=== PATIENT | female | born 1995 | race Caucasian/White ===

== ENCOUNTER 2019-12-05 18:57 | Emergency (ER) | payer BC, OTHER ==
--- NOTE | 2019-12-05 19:12 | ED Physician Documentation ---
History of Present Illness - Stated complaint Stated Complaint: LIGHTHEADED, SOA, NAUSEA - Chief complaint Chief Complaint: Resp - History obtained from History obtained from: Patient (Patient is a 22-year-old female presents with a chief complaint of shortness of breath. She denies any history of pulmonary embolism or DVT there is no family history of hypercoagulability she denies any hemoptysis or fevers or cough. Denies any lower extremity swelling.Denies chest pain, denies), Other (Denies palpitations or syncope. Denies any family history of sudden in young age and mother, father, brother sister.) Review of Systems Constitutional: reports: Reviewed and negative Eyes: reports: Reviewed and negative Ears: reports: Reviewed and negative Nose: reports: Reviewed and negative Throat: reports: Reviewed and negative Cardiac: reports: Reviewed and negative Respiratory: reports: Dyspnea GI: reports: Reviewed and negative : reports: Reviewed and negative Skin: reports: Reviewed and negative Musculoskeletal: reports: Reviewed and negative Neurologic: reports: Reviewed and negative Psychiatric: reports: Reviewed and negative Endocrine: reports: Reviewed and negative Immunocompromised: reports: Reviewed and negative PD PAST MEDICAL HISTORY - Allergies Allergies/Adverse Reactions: Allergies Allergy/AdvReac Type Severity Reaction Status Date / Time azithromycin [From Zithromax] Allergy Respiratory Verified 12/05/19 19:03 PD ED PE NORMAL - Vitals Vital signs reviewed: Yes - General General: Alert and oriented X 3, No acute distress - HEENT HEENT: Atraumatic, PERRL, Moist mucous membranes, Pharynx benign - Neck Neck: Supple, no meningeal sign - Cardiac Cardiac: RRR, No murmur, No gallop, No rub, Strong equal pulses - Respiratory Respiratory: No respiratory distress, Clear bilaterally - Abdomen Abdomen: Normal bowel sounds, Soft, Non tender, Non distended, No organomegaly - Back Back: No CVA TTP, No spinal TTP - Derm Derm: Normal color, Warm and dry, No rash - Extremities Extremities: No deformity, No tenderness to palpate, Normal ROM s pain, No edema, No calf tenderness / cord - Neuro Neuro: Alert and oriented X 3, 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, No motor deficit, No sensory deficit, Normal speech - Psych Psych: Normal mood, Normal affect Results - Vitals Vitals: Vital Signs - 24 hr 12/05/19 18:59 Temperature 37.1 C Heart Rate 110 H Respiratory 16 Rate Blood Pressure 134/79 H O2 Saturation 99 Oxygen O2 Source Room air - Labs Labs: Laboratory Tests 12/05/19 19:53 Urine Color YELLOW Urine Clarity CLEAR Urine pH 7.0 Ur Specific Odum 1.010 Urine Protein NEGATIVE Urine Glucose (UA) NEGATIVE Urine Ketones NEGATIVE Urine Occult Blood NEGATIVE Urine Nitrite NEGATIVE Urine Bilirubin NEGATIVE Urine Urobilinogen 0.2 (NORMAL) Ur Leukocyte Esterase MODERATE H Urine RBC None Seen Urine WBC 4-5 Ur Squamous Epith Cells MOD Squamous H Urine Bacteria None Seen Ur Microscopic Review INDICATED Urine Culture Comments NOT INDICATED Urine HCG, Qual NEGATIVE PD MEDICAL DECISION MAKING - ED course Complexity details: reviewed results, re-evaluated patient, considered differential (23-year-old female with no risk factors presents with shortness of breath, no fever, normal chest x-ray. Well-appearing on physical exam. Her heart rate is 90 and regular on reexamination. PERC O. ), d/w patient, other (Patient reexamined her heart rate is 90 and breath sounds are clear she is nontoxic and nonseptic appearing) Departure - Departure Disposition: 01 Home, Self Care Clinical Impression: SOB (shortness of breath) Condition: Stable Instructions: ED Dyspnea Shortness of Breath Follow-Up: Naveed Carreon MD [Provider Admit Priv/Credential] - Tomorrow Comments: Follow-up with a primary care provider tomorrow.
--- NOTE | 2019-12-05 19:57 | XRAY Report ---
PROCEDURE: Chest 1 View X-Ray INDICATIONS: sob TECHNIQUE: One view of the chest was acquired. COMPARISON: None. FINDINGS: Surgical changes and devices: None. Lungs and pleura: No pleural effusions or pneumothorax. Lungs are clear. Mediastinum: Mediastinal contours appear normal. Heart size is normal. Bones and chest wall: No suspicious bony lesions. Overlying soft tissues appear unremarkable. IMPRESSION: No acute cardiopulmonary pathology. Reviewed by: Brian Bronson MD on 12/05/2019 7:55 PM PDT Approved by: Brian Bronson MD on 12/05/2019 7:55 PM PDT Station ID: [id number]
[2019-12-05 20:21] LABS: BILIRUBIN,URINE NEGATIVE (NEGATIVE); CLARITY,URINE CLEAR (CLEAR); GLUCOSE, URINE (UA) NEGATIVE (NEGATIVE); KETONES,URINE (UA) NEGATIVE (NEGATIVE); LEUKOCYTE ESTERASE, URINE MODERATE (NEGATIVE); NITRITE,URINE NEGATIVE (NEGATIVE); OCCULT BLOOD,URINE NEGATIVE (NEGATIVE); PROTEIN,URINE NEGATIVE (NEGATIVE); UROBILINOGEN,URINE 0.2 (NORMAL) E.U./dL (NORMAL)
[2019-12-05 20:22] LABS: HCG UR QUAL NEGATIVE
[2019-12-05 20:29] LABS: BACTERIA,URINE None Seen /HPF (None Seen); RBC,URINE None Seen /HPF (0-5); SQUAMOUS EPITHELIAL CELL,UR MOD Squamous (<= Few)
[2019-12-05 20:45] VITALS: BP 121/77
== END 2019-12-05 20:45 | disposition home or self-care (01) ==
LOC: ED 18:57
DX: R06.02 Shortness of breath (principal)
CPT/HCPCS: 71045; 81001; 81003; 81025; 87086; 99283; 99284

== ENCOUNTER 2020-08-30 09:45 | Outpatient (CLI) | payer OTHER | END 2020-08-30 23:59 | disposition home or self-care (01) | LOC: LAB.R 09:45 | PROVIDERS: ATTEND Family Medicine | DX: N39.0 Urinary tract infection, site not specified (principal) | CPT/HCPCS: 87086 ==

== ENCOUNTER 2022-12-01 13:48 | Outpatient (CLI) | payer OTHER ==
--- NOTE | 2022-12-01 15:46 | MRI Report ---
PROCEDURE: LUMBAR SPINE WO INDICATIONS: LUMBAGO TECHNIQUE: Noncontrast sagittal T1 spin echo and T2 fast echo, sagittal STIR, axial T1 and T2 fast spin echo thr ough the lumbar spine. In cases with scoliosis, additional coronal T2 fast spin echo may be performe d. COMPARISON: None. FINDINGS: Image quality: Excellent. Alignment and Curvature: Straightening of the normal lumbar lordosis, may be positional.. Bone Marrow: Marrow is of normal overall signal. No acute vertebral body compression fractures. Spinal Cord: Conus medullaris terminates at the L1 level. Visualized cord demonstrates normal signa l and size. Paraspinous Soft Tissues: No paravertebral masses. T12-L1: Normal in appearance. L1-L2: Normal in appearance. L2-L3: Normal in appearance. L3-L4: Normal in appearance. L4-L5: Normal in appearance. L5-S1: Posterior disc protrusion resulting in mild central canal stenosis and narrowing of the late ral recesses sees with impingement of the left greater than right S1 nerve roots. No neural foraminal narrowing. IMPRESSION: Central posterior disc protrusion at L5-S1 resulting in mild central canal stenosis and narrowing of the lateral recesses sees with impingement of the left greater than right descending S1 nerve roots. Reviewed by: Yao Foy MD on 12/01/2022 3:45 PM PDT Approved by: Yao Foy MD on 12/01/2022 3:45 PM PDT Station ID: [id number]
== END 2022-12-01 13:49 | disposition home or self-care (01) ==
LOC: DI 13:48
PROVIDERS: ATTEND Nurse Practitioner Family
DX: M51.17 Intervertebral disc disorders with radiculopathy, lumbosacral region (principal); M48.07 Spinal stenosis, lumbosacral region